=== PATIENT | female | born 1955 | race Caucasian/White ===

== ENCOUNTER 2022-05-04 19:28 | Observation (INO) | payer MEDICARE ==
[~2022-05-04] VITALS: Ht 170.2 cm; Wt 71.7 kg
[2022-05-04] MEDS ORDERED: ASPIRIN 81 MG CHEW TAB PO ONE (19:45)
[2022-05-04 20:07] LABS: BASOPHILS # (AUTO) 0.1 (0.0-0.1); BASOPHILS % 0.6 % (0.0-1.0); EOSINOPHILS # (AUTO) 0.1 (0.0-0.4); EOSINOPHILS % 1.3 % (0.0-6.0); HEMOGLOBIN 11.5 g/dL (12.0-16.0); LYMPHOCYTES # (AUTO) 1.4 (1.0-3.2); LYMPHOCYTES % 16.2 % (18.0-39.1); MEAN CORPUSCULAR HEMOGLOBIN 24.6 pg (28-32); MEAN CORPUSCULAR HGB CONC 31.1 g/dL (31-35); MEAN CORPUSCULAR VOLUME 79.2 fL (81-99); NEUTROPHILS # (AUTO) 6.2 (2.1-6.9); NEUTROPHILS % 70.6 % (38.7-80.0); PLATELET COUNT 320 x10e3/uL (140-360); RED BLOOD COUNT 4.67 x10e6/uL (3.6-5.1); RED CELL DISTRIBUTION WIDTH 18.7 % (11.7-14.4)
[2022-05-04 20:21] LABS: ALBUMIN 3.4 g/dL (3.5-5.0); ALBUMIN/GLOBULIN RATIO 1.1 (0.8-2.0); ANION GAP 15.1 mmol/L (8-16); CALCIUM 7.9 mg/dL (8.4-10.2); CREATININE, SERUM 0.63 mg/dL (0.57-1.11); POTASSIUM 4.1 mmol/L (3.5-5.1)
[2022-05-04] MEDS ORDERED: IOPAMIDOL 370 MG/ML 100 ML INFUS..BTL INJ ONE (20:59)
[2022-05-04 22:15] LABS: CREATINE KINASE MB 1.4 ng/mL (0-5.0)
[2022-05-04 22:49] VITALS: BP 133/86
[2022-05-04 23:00] VITALS: BP 133/86
[2022-05-04] MEDS ORDERED: ETODOLAC400 MG PO (23:53)
[2022-05-04] MEDS ORDERED: HYDROXYZINE HCL25 MG PO (23:53)
[2022-05-04] MEDS ORDERED: OMEPRAZOLE40 MG PO (23:53)
[2022-05-04] MEDS ORDERED: WELLBUTRIN XL300 MG PO (23:53)
[2022-05-04] MEDS ORDERED: IBUPROFEN600 MG PO (23:53)
[2022-05-04] MEDS ORDERED: RESTASIS1 EACH OU (23:53)
[2022-05-04] MEDS ORDERED: POTASSIUM CHLO10 ME1 PO (23:53)
[2022-05-04] MEDS ORDERED: LEVOTHYROXINE112 MCG PO (23:53)
[2022-05-04] MEDS ORDERED: SINGULAIR10 MG PO (23:53)
[2022-05-04] MEDS ORDERED: LASIX20 MG PO (23:53)
[2022-05-04] MEDS ORDERED: NYSTATIN15 G2 TOP (23:53)
[2022-05-04] MEDS ORDERED: LYRICA75 MG PO (23:53)
[2022-05-05] VITALS (7 sets, daily range): BP systolic 130–145; BP diastolic 77–92
[2022-05-05 06:23] LABS: BASOPHILS % 0.6 % (0.0-1.0); EOSINOPHILS # (AUTO) 0.1 (0.0-0.4); EOSINOPHILS % 1.7 % (0.0-6.0); HEMATOCRIT 37.4 % (34.2-44.1); HEMOGLOBIN 11.5 g/dL (12.0-16.0); LYMPHOCYTES # (AUTO) 1.4 (1.0-3.2); LYMPHOCYTES % 19.8 % (18.0-39.1); MEAN CORPUSCULAR HEMOGLOBIN 24.4 pg (28-32); MEAN CORPUSCULAR HGB CONC 30.7 g/dL (31-35); MEAN CORPUSCULAR VOLUME 79.2 fL (81-99); MONOCYTES # (AUTO) 0.8 (0.2-0.8); MONOCYTES % 11.7 % (4.4-11.3); NEUTROPHILS # (AUTO) 4.5 (2.1-6.9); NEUTROPHILS % 66.1 % (38.7-80.0); PLATELET COUNT 279 x10e3/uL (140-360); RED BLOOD COUNT 4.72 x10e6/uL (3.6-5.1); RED CELL DISTRIBUTION WIDTH 18.8 % (11.7-14.4)
[2022-05-05 06:44] LABS: ANION GAP 13.7 mmol/L (8-16); CREATININE, SERUM 0.62 mg/dL (0.57-1.11); POTASSIUM 3.7 mmol/L (3.5-5.1)
[2022-05-05 07:05] LABS: CREATINE KINASE MB 1.3 ng/mL (0-5.0)
[2022-05-05] MEDS ORDERED: HYDROXYZINE HCL 25 MG TAB PO PRN (09:45)
[2022-05-05] MEDS ORDERED: IBUPROFEN 400 MG TAB PO PRN (09:45)
[2022-05-05] MEDS: LEVOTHYROXINE SODIUM 112 MCG TAB PO SCH (11:00)
[2022-05-05 14:29] LABS: CREATINE KINASE MB 1.1 ng/mL (0-5.0)
[2022-05-05] MEDS: COLCHICINE 0.6 MG TAB PO SCH (18:05)
[2022-05-05] MEDS: ETODOLAC 400 MG PO SCH (21:00)
[2022-05-05] MEDS ORDERED: MONTELUKAST SODIUM 10 MG TAB PO SCH (21:00)
[2022-05-06] VITALS: BP 141/82
[2022-05-06 04:00] VITALS: BP 155/94
[2022-05-06] MEDS: LEVOTHYROXINE SODIUM 112 MCG TAB PO SCH (06:12)
[2022-05-06] MEDS ORDERED: PANTOPRAZOLE SOD 40 MG TABEC PO SCH (07:30)
[2022-05-06 07:36] VITALS: BP 155/82
[2022-05-06 08:14] VITALS: BP 155/82
[2022-05-06] MEDS ORDERED: NON-FORMULARY MEDICATION (Cyclosporine (Restasis) 1 DROP) OU SCH (09:00)
[2022-05-06] MEDS ORDERED: FUROSEMIDE 20 MG TAB PO SCH (09:00)
[2022-05-06] MEDS ORDERED: BUPROPION HCL 150 MG TABCR PO SCH (09:00)
[2022-05-06] MEDS ORDERED: POTASSIUM CHLORIDE 10MEQ EA PO SCH (09:00)
[2022-05-06] MEDS: COLCHICINE 0.6 MG TAB PO SCH (09:52)
[2022-05-06] MEDS: ETODOLAC 400 MG PO SCH (09:53)
[2022-05-06] MEDS ORDERED: COLCRYS0.6 MG PO (10:57)
[2022-05-06 11:27] VITALS: BP 135/83
== END 2022-05-06 11:40 | disposition home or self-care (01) ==
LOC: ER 19:35 → ERHOLD 21:45 → MED/SURG3 22:51
PROVIDERS: ADMIT Internal Medicine; ATTEND Internal Medicine
DX: R07.89 Other chest pain (principal); I31.9 Disease of pericardium, unspecified; Z20.822 Contact with and (suspected) exposure to COVID-19; Z87.891 Personal history of nicotine dependence; F32.A Depression, unspecified; F41.9 Anxiety disorder, unspecified; K21.9 Gastro-esophageal reflux disease without esophagitis; E03.9 Hypothyroidism, unspecified
CPT/HCPCS: 36415 ×2; 71045; 71260; 80048; 80053; 82550 ×2; 82553 ×2; 84484 ×2; 85025 ×2; 85379; 93005; 93306; 94799; 99284; G0378 ×3; Q9967; S0164; U0002